=== PATIENT | female | born 1990 | race Caucasian/White ===

== ENCOUNTER 2019-04-05 12:24 | Outpatient (CLI) | payer MEDICAID | END 2019-04-05 15:40 | disposition home or self-care (01) | LOC: OBT 12:24 → L-D 12:25 → OBT 15:40 | DX: O36.8130 Decreased fetal movements, third trimester, not applicable or unspecified (principal); Z3A.38 38 weeks gestation of pregnancy | CPT/HCPCS: 76818 ==

== ENCOUNTER 2019-04-08 17:04 | Inpatient (IN) | payer MEDICAID ==
[2019-04-08] MEDS ORDERED: METHYLERGONOVINE 0.2 MG INJ IM (18:00)
[2019-04-08] MEDS ORDERED: BUTORPHANOL 2 MG INJ IV ×2 (18:00)
[2019-04-08] MEDS ORDERED: OXYTOCIN 30 UNITS/LR 500 ML IV (18:00)
[2019-04-08] MEDS ORDERED: MISOPROSTOL 200 MCG TAB PR (18:00)
[2019-04-08] MEDS ORDERED: CARBOPROST 250 MCG INJ IM (18:00)
[2019-04-08] MEDS ORDERED: LIDOCAINE 1% (MPF) 30 ML INJ INJ (18:00)
[2019-04-08] MEDS: LACTATED RINGER'S 1,000 ML IV (19:05)
[2019-04-08 19:55] LABS: ADD MAN DIFF? NO
[2019-04-08 19:57] LABS: WHITE BLOOD COUNT 11.7 10^3/ul (4.8-10.8)
[2019-04-08 19:57] LABS: BASOPHILS % 0.3 % (0.0-2.0); EOSINOPHILS # 0.1 10^3/ul (0.0-0.5); EOSINOPHILS % 0.9 % (0.0-7.0); HEMATOCRIT 36.8 % (37.0-47.0); HEMOGLOBIN 11.9 g/dl (12.0-16.0); LYMPHOCYTES # 2.4 10^3/ul (0.8-2.9); LYMPHOCYTES % 20.7 % (15.0-51.0); MEAN CORPUSCULAR HEMOGLOBIN 28.9 pg (29.0-33.0); MEAN CORPUSCULAR HGB CONC 32.3 g/dl (32.0-37.0); MEAN CORPUSCULAR VOLUME 89.3 fl (82.0-101.0); MEAN PLATELET VOLUME 9.9 fl (7.4-10.4); MONOCYTE # 0.8 10^3/ul (0.3-0.9); MONOCYTES % 6.7 % (0.0-11.0); NEUTROPHIL # 8.3 10^3/ul (1.6-7.5); NEUTROPHILS % 70.6 % (39.0-77.0); PLATELET COUNT 290 10^3/UL (140-415); RED BLOOD COUNT 4.12 10^6/ul (4.20-5.40); RED CELL DISTRIBUTION WIDTH 13.2 % (11.5-14.5)
[2019-04-08 20:17] LABS: INR 0.88; PT RATIO 0.9
[2019-04-08 20:44] LABS: HEPATITIS B SURFACE ANTIGEN NEGATIVE (NEGATIVE)
[2019-04-09] MEDS: LACTATED RINGER'S 1,000 ML IV (02:36)
[2019-04-09] MEDS: OXYTOCIN 30 UNITS/LR 500 ML IV ×3 (07:23→09:05)
[2019-04-09] MEDS: IBUPROFEN 600 MG TAB PO (07:32)
[2019-04-09] MEDS ORDERED: DIPHENHYDRAMINE 25 MG CAP PO (09:30)
[2019-04-09] MEDS ORDERED: ACETAMINOPHEN 325 MG TAB PO (09:30)
[2019-04-09] MEDS ORDERED: METHYLERGONOVINE 0.2 MG INJ IM (09:30)
[2019-04-09] MEDS ORDERED: MISOPROSTOL 200 MCG TAB PR (09:30)
[2019-04-09] MEDS ORDERED: OXYTOCIN 30 UNITS/LR 500 ML IV (09:30)
[2019-04-09] MEDS ORDERED: MAGNESIUM HYDROXIDE 30ML CUP PO (09:30)
[2019-04-09] MEDS ORDERED: ZOLPIDEM 5 MG TAB PO (09:30)
[2019-04-09] MEDS ORDERED: CARBOPROST 250 MCG INJ IM (09:30)
[2019-04-09] MEDS: BENZOCAINE 20% 56 ML SPRAY TOP (11:08)
[2019-04-09] MEDS: WITCH HAZEL/GLYCERIN PAD PR (11:08)
[2019-04-09] MEDS: LANOLIN HPA 1 PKT TOP (11:08)
[2019-04-09] MEDS: HYDROCODONE/APAP (5/325) TAB PO ×2 (11:09→20:37)
[2019-04-09] MEDS: LACTATED RINGER'S 1,000 ML IV* (11:21)
[2019-04-09] MEDS: IBUPROFEN 800 MG TAB PO ×3 (12:00→23:57)
[2019-04-09 17:43] LABS: RAPID PLASMA REAGIN NONREACTIVE (NR)
[2019-04-10] MEDS: HYDROCODONE/APAP (5/325) TAB PO ×2 (04:11→10:21)
[2019-04-10] MEDS: IBUPROFEN 800 MG TAB PO ×4 (06:14→23:32)
[2019-04-10 06:48] LABS: ADD MAN DIFF? NO
[2019-04-10 06:55] LABS: BASOPHILS % 0.4 % (0.0-2.0); EOSINOPHILS # 0.1 10^3/ul (0.0-0.5); EOSINOPHILS % 0.7 % (0.0-7.0); HEMATOCRIT 27.3 % (37.0-47.0); HEMOGLOBIN 8.8 g/dl (12.0-16.0); LYMPHOCYTES # 2.1 10^3/ul (0.8-2.9); LYMPHOCYTES % 20.2 % (15.0-51.0); MEAN CORPUSCULAR HEMOGLOBIN 28.9 pg (29.0-33.0); MEAN CORPUSCULAR HGB CONC 32.2 g/dl (32.0-37.0); MEAN CORPUSCULAR VOLUME 89.5 fl (82.0-101.0); MEAN PLATELET VOLUME 9.9 fl (7.4-10.4); MONOCYTES % 9.5 % (0.0-11.0); NEUTROPHIL # 6.9 10^3/ul (1.6-7.5); NEUTROPHILS % 68.2 % (39.0-77.0); PLATELET COUNT 234 10^3/UL (140-415); RED BLOOD COUNT 3.05 10^6/ul (4.20-5.40); RED CELL DISTRIBUTION WIDTH 13.2 % (11.5-14.5)
[2019-04-10 06:55] LABS: WHITE BLOOD COUNT 10.2 10^3/ul (4.8-10.8)
[2019-04-10] MEDS: SENNA/DOCUSATE NA (8.6MG/50MG) TAB PO (21:20)
[2019-04-11] MEDS: IBUPROFEN 800 MG TAB PO ×2 (06:16→11:38)
[2019-04-11] MEDS: MEASLES,MUMPS,RUBELLA VACCINE INJ SC* (07:43)
[2019-04-11] MEDS: VARICELLA VACCINE LIVE/PF 1,350 UNIT/0.5 ML ML SC* (07:43)
[2019-04-11] MEDS: SENNA/DOCUSATE NA (8.6MG/50MG) TAB PO (09:06)
[2019-04-11] MEDS: DIPHTH/TET/ACEL PERTUSS (ADULT) 0.5 ML VIAL IM* (13:30)
== END 2019-04-11 15:25 | disposition home or self-care (01) | DRG 807 ==
LOC: OBT 17:04 → PP1 04-09 08:58 → L-D 17:04 → OBT 17:40 → L-D 17:40
PROVIDERS: Obstetrics & Gynecology
PROC: 10E0XZZ Delivery of Products of Conception, External Approach (ICD-10-PCS; principal; 2019-04-09)
PROC: 10907ZC Drainage of Amniotic Fluid, Therapeutic from Products of Conception, Via Natural or Artificial Opening (ICD-10-PCS; 2019-04-09)
DX: O70.0 First degree perineal laceration during delivery (principal); Z37.0 Single live birth; Z3A.39 39 weeks gestation of pregnancy
CPT/HCPCS: 76815; 76818; 85025; 85610; 85730; 86592; 86850; 86900; 86901; 87340; 90715; 90716